=== PATIENT | male | born 1955 | race Caucasian/White ===

== ENCOUNTER → 2017-01-01 | Outpatient (CLI) | payer MEDICARE ==
[~2017-01-01] MED LIST: FENO50TA PO; SUST50CA PO; [UNRECOGNIZED DRUG - OTHER] PO
[2017-01-01 09:58] LABS: BLOOD GAS BASE EXCESS -0.9 mmol/L (-2-2); BLOOD GAS CARBOXYHEMOGLOBIN 1.4 % (0-4); BLOOD GAS HCO3 23 mmol/L (22-26); BLOOD GAS METHEMOGLOBIN 1.3 % (0-2); BLOOD GAS O2 HGB SATURATION 95 % (90-100); BLOOD GAS OXYGEN CONTENT 18.7 Vol % (12.0-20.0); BLOOD GAS PCO2 37 mmHg (38-42); BLOOD GAS PO2 95 mmHg (61-120); CRITICAL VALUE NO; DRAW SITE RT RADIAL; FIO2 21 %; NUMBER OF ARTERIAL PUNCTURES 1; STAT NO; TEMP CORR TO 98.6; ULNAR PULSE PRESENT
--- NOTE | 2017-01-29 12:22 | RSPPFT ---
DATE OF PROCEDURE: 01/01/17 COMMENTS: VOLUMES DYNAMIC: FVC and FEV1 mildly reduced. STATIC: TLC and RV normal; FRC mildly reduced. FLOWS: FEV1% normal; FEF 25-75 mildly reduced. DIFFUSION: Low normal. FLOW VOLUME LOOP: Restrictive configuration with terminal airflow obstruction. IMPRESSION: Combined mild obstructive and mild restrictive ventilatory defect with improvement post-bronchodilator. Airways resistance is increased. Diffusion capacity is normal.
== END ==
LOC: HRSP 08:54
PROVIDERS: ATTEND Family Medicine
DX: R06.00 Dyspnea, unspecified (principal)
CPT/HCPCS: 36600; 82805; 94060; 94726; 94729